=== PATIENT | female | born 1960 | race Two or more races ===

== ENCOUNTER 2022-10-19 00:44 | Inpatient (IN) | payer MEDICARE, OTHER ==
[2022-10-19] MEDS ORDERED: ALBUTEROL NEBULIZED 2.5 MG/3 ML INHALATION STA (00:46)
[2022-10-19] MEDS ORDERED: SODIUM CHLORIDE 0.9% 1,000 ML IV STA (00:46)
[2022-10-19] MEDS ORDERED: IPRATROPIUM 0.5 MG/2.5 ML NEBU INHALATION STA (00:46)
--- NOTE | 2022-10-19 00:47 | ED ---
SOB HPI - General Stated Complaint: Difficulty Breathing Time Seen by Provider: 10/19/22 00:46 Source: RN notes reviewed, old records reviewed Mode of arrival: EMS Limitations: altered mental status - History of Present Illness Initial Comments: This is a 62-year-old female DF for severe shortness of breath presenting a nonrebreather in significant distress severe shortness of breath lasting for a few hours no. Patient's brought in by EMS. No chest pain. No recent fever co ugh and congestion. MD Complaint: shortness of breath, cough, "asthma attack", anxiety -: hour(s) Severity: severe Severity scale (1-10): 10 Consistency: constant Improves With: bronchodilators Worsens With: exertion, movement Known History Of: COPD Context: recent URI, recent illness Associated Symptoms: cough, sputum production Treatments Prior to Arrival: none - Related Data Allergies Allergy/AdvReac Type Severity Reaction Status Date / Time codeine Allergy Unknown Verified 10/19/22 00:53 Review of Systems ROS Statement: Those systems with pertinent positive or pertinent negative responses have been documented in the HPI. ROS Other: All systems not noted in ROS Statement are negative. Course Vital Signs 10/19/22 10/19/22 10/19/22 00:45 00:55 00:57 Temperature 98.1 F Pulse Rate 109 H 90 Respiratory 26 H Rate Blood Pressure 184/128 O2 Sat by Pulse 100 Oximetry Fraction of 35 35 Inspired Oxygen (FIO2) 10/19/22 10/19/22 10/19/22 01:00 01:07 01:08 Temperature Pulse Rate 90 90 Respiratory 32 H Rate Blood Pressure O2 Sat by Pulse Oximetry Fraction of Inspired Oxygen (FIO2) 10/19/22 10/19/22 01:28 01:29 Temperature Pulse Rate 92 92 Respiratory Rate Blood Pressure O2 Sat by Pulse Oximetry Fraction of Inspired Oxygen (FIO2) - Reevaluation(s) Reevaluation #1: 10/19/22 01:36 Medical records reviewed Reevaluation #2: 10/19/22 01:37 Patient placed on BiPAP on arrival Patient is improving here in the ER Reevaluation #3: 10/19/22 01:37 Patient informed results and questions answered - Consultations Consultation #1: Spoke with admitting physicians who agree to admit this patient Medical Decision Making - Medical Decision Making 62 female for respiratory failure hypoxic secondary to COPD severely elevated blood pressure improving - Lab Data Result diagrams: 10/19/22 00:55 10/19/22 00:55 Lab Results 10/19/22 10/19/22 10/19/22 Range/Units 00:55 00:55 00:55 WBC 10.9 H (3.8-10.6) k/uL RBC 4.41 (3.80-5.40) m/uL Hgb 12.6 (11.4-16.0) gm/dL Hct 42.5 (34.0-46.0) % MCV 96.4 (80.0-100.0) fL MCH 28.6 (25.0-35.0) pg MCHC 29.7 L (31.0-37.0) g/dL RDW 13.1 (11.5-15.5) % Plt Count 243 (150-450) k/uL MPV 7.4 Neutrophils % 64 % Lymphocytes % 28 % Monocytes % 4 % Eosinophils % 1 % Basophils % 1 % Neutrophils # 7.0 (1.3-7.7) k/uL Lymphocytes # 3.1 (1.0-4.8) k/uL Monocytes # 0.4 (0-1.0) k/uL Eosinophils # 0.1 (0-0.7) k/uL Basophils # 0.1 (0-0.2) k/uL Hypochromasia Marked Sodium 140 (137-145) mmol/L Potassium 4.7 (3.5-5.1) mmol/L Chloride 101 (98-107) mmol/L Carbon Dioxide 29 (22-30) mmol/L Anion Gap 10 mmol/L BUN 26 H (7-17) mg/dL Creatinine 0.93 (0.52-1.04) mg/dL Est GFR (CKD-EPI)AfAm 76 (>60 ml/min/1.73 sqM) Est GFR (CKD-EPI)NonAf 66 (>60 ml/min/1.73 sqM) Glucose 169 H (74-99) mg/dL Plasma Lactic Acid Ramses 3.9 H* (0.7-2.0) mmol/L Calcium 8.5 (8.4-10.2) mg/dL Magnesium 2.1 (1.6-2.3) mg/dL Total Bilirubin 0.3 (0.2-1.3) mg/dL AST 43 H (14-36) U/L ALT 33 (4-34) U/L Alkaline Phosphatase 66 (38-126) U/L Total Protein 7.1 (6.3-8.2) g/dL Albumin 4.3 (3.5-5.0) g/dL - EKG Data -: EKG Interpreted by Me (EKG is sinus tachycardia 108 AK 1:30 QRS 82 QTC 371) - Radiology Data Radiology results: report reviewed (Chest x-rays negative for acute disease), image reviewed Critical Care Time Critical Care Time: Yes Total Critical Care Time: 31 Disposition Clinical Impression: Acute exacerbation of chronic obstructive pulmonary disease, Acute respiratory failure, Hypoxia, Hypertensive urgency Disposition: ADMITTED IP TO THIS HOSP Condition: Serious Is patient prescribed a controlled substance at d/c from ED?: No Referrals: None,Stated [Primary Care Provider] - 1-2 days Time of Disposition: 01:40
[2022-10-19] MEDS ORDERED: ENALAPRILAT 1.25 MG/ML 1 ML VIAL IVP STA (00:56)
[2022-10-19 01:04] LABS: Basophils # (A) 0.1 k/uL (0-0.2); Basophils % (A) 1 %; Eosinophils # (A) 0.1 k/uL (0-0.7); Eosinophils % (A) 1 %; HCT 42.5 % (34.0-46.0); HGB 12.6 gm/dL (11.4-16.0); Hypochromasia Marked; Lymphocytes # (A) 3.1 k/uL (1.0-4.8); Lymphocytes % (A) 28 %; MCH 28.6 pg (25.0-35.0); MCHC 29.7 g/dL (31.0-37.0); MCV 96.4 fL (80.0-100.0); Mean Platelet Volume 7.4; Monocytes # (A) 0.4 k/uL (0-1.0); Monocytes % (A) 4 %; Neutrophils % (A) 64 %; Platelet Count 243 k/uL (150-450); RBC 4.41 m/uL (3.80-5.40); RDW 13.1 % (11.5-15.5); WBC 10.9 k/uL (3.8-10.6)
--- NOTE | 2022-10-19 01:12 | XR ---
EXAMINATION TYPE: XR chest 1V portable DATE OF EXAM: 10/19/2022 COMPARISON: NONE HISTORY: Short of breath TECHNIQUE: Single view FINDINGS: Heart is normal. There is some mild blunting right custom phrenic angle. No heart failure s een. There is mild pulmonary hyperinflation. There are no hilar masses. IMPRESSION: Mild pleural reaction or fluid at the right lung base. There is probably COPD.
[2022-10-19 01:16] LABS: Partial Thromboplastin Time 22.5 sec (22.0-30.0); Prothrombin Time 10.9 sec (9.0-12.0)
[2022-10-19 01:30] LABS: Albumin 4.3 g/dL (3.5-5.0); Calcium 8.5 mg/dL (8.4-10.2); Magnesium 2.1 mg/dL (1.6-2.3); Total Bilirubin 0.3 mg/dL (0.2-1.3); Total Protein 7.1 g/dL (6.3-8.2)
[2022-10-19 01:33] LABS: Potassium 4.7 mmol/L (3.5-5.1)
[2022-10-19] MEDS ORDERED: ACETAMINOPHEN TAB 325 MG TAB PO PRN (01:34)
[2022-10-19] MEDS ORDERED: NALOXONE 0.4 MG/ML 1 ML VIAL IV PRN (01:34)
[2022-10-19] MEDS ORDERED: ONDANSETRON 4 MG/2 ML VIAL IVP PRN (01:34)
[2022-10-19] MEDS ORDERED: IPRATROPIUM-ALBUTEROL 3 ML NEB INHALATION STA (01:35)
[2022-10-19] MEDS: SODIUM CHLORIDE 0.9% 1,000 ML IV SCH ×3 (02:20→20:35)
[2022-10-19] MEDS: methylPREDNISolone SOD SUCCI 125 MG/2 ML VIAL IV SCH ×4 (06:14→23:45)
[2022-10-19] MEDS ORDERED: ALBUTEROL NEBULIZED 2.5 MG/3 ML INHALATION SCH (08:00)
[2022-10-19] MEDS ORDERED: IPRATROPIUM-ALBUTEROL 3 ML NEB INHALATION PRN (08:00)
--- NOTE | 2022-10-19 08:30 | P.HPIM ---
History of Present Illness This is a pleasant 62 years old -[place] female with no significant past medical history presents because of difficulty breathing, patient is currently on BiPAP feels very lethargic and she is poor historian. Information were obtained with the help of her brother at bedside. Patient was just moved from [place] the [place], as per brother she has history of COPD and chronic hypoxic respiratory failure on 4 L oxygen via nasal cannula. Presents because of worsening dyspnea patient awake and alert but very tired and barely can talk because of this BiPAP mask, her BiPAP setting of 10/23 with an FiO2 of 35%. Her brother states she was not coughing patient denies chest pain or abdominal pain. She denies diarrhea or vomiting. She denies dysuria or urgency. No headache or weakness or numbness or dizziness. Patient said that she smokes only 1 cigarette per day and she was counseled to quit and she agrees to the nicotine patch. She denies alcohol or illicit tracts. currently Vitas looks stable and patient is afebrile mild leukocytosis of 10.9, rest of cbc, inr, bmp is unremarkable. the consult came back to normal. liver enzymes not significantly elevated. on and is negative, probnp is 37. coronavirus not detected. Chest x-ray: Mild pleural reaction or fluid of the right lung base. There probably COPD EKG showing sinus tachycardia [address]-T changes. And emergency room patient received bronchodilator, normal saline and doesn't take. He was started on Solu-Medrol 60 mg Review of Systems Review of systems CONSTITUTIONAL: No fever, no malaise, no fatigue. HEENT: No recent visual problems or hearing problems. Denied any sore throat. CARDIOVASCULAR: No orthopnea, PND, no palpitations, no syncope. PULMONARY: No chest wall tenderness, no hemoptysis. GASTROINTESTINAL: No diarrhea, no nausea, no vomiting, no abdominal pain. Normoactive bowel sounds. NEUROLOGICAL: No headaches, no weakness, no numbness. HEMATOLOGICAL: Denies any bleeding or petechiae. GENITOURINARY: Denies any burning micturition, frequency, or urgency. MUSCULOSKELETAL/RHEUMATOLOGICAL: Denies any joint pain, swelling, or any muscle pain. ENDOCRINE: Denies any polyuria or polydipsia. Past Medical History Past Medical History: Unable to Obtain History of Any Multi-Drug Resistant Organisms: None Reported Past Surgical History: Unable to Obtain Past Psychological History: No Psychological Hx Reported Smoking Status: Unknown if ever smoked Past Alcohol Use History: Unable to Obtain Past Drug Use History: Unable to Obtain Medications and Allergies Allergies Allergy/AdvReac Type Severity Reaction Status Date / Time codeine Allergy Unknown Verified 10/19/22 00:53 Physical Exam Vitals: Vital Signs Temp Pulse Resp BP Pulse Ox FiO2 10/19/22 06:00 75 9 L 104/70 97 10/19/22 05:30 77 11 L 103/67 98 10/19/22 05:00 79 14 103/67 97 10/19/22 04:30 78 18 109/61 98 10/19/22 04:00 75 16 103/65 99 10/19/22 03:30 81 19 110/64 100 10/19/22 03:00 80 16 122/73 100 35 10/19/22 02:30 82 17 100/61 90 L 10/19/22 02:10 79 15 100/74 99 10/19/22 01:50 81 13 108/75 100 10/19/22 01:40 83 18 94/64 97 10/19/22 01:29 92 10/19/22 01:28 92 10/19/22 01:20 81 17 122/87 100 10/19/22 01:10 87 17 159/86 99 10/19/22 01:08 90 10/19/22 01:07 90 10/19/22 01:00 100 27 H 160/99 10/19/22 00:57 90 10/19/22 00:55 35 10/19/22 00:52 177/132 10/19/22 00:45 98.1 F 109 H 26 H 184/128 100 35 Intake and Output 10/18/22 10/18/22 10/19/22 14:59 22:59 06:59 Other: Weight 41.73 kg -GENERAL: The patient is alert and oriented x3, tire,d not in any acute distress. Well developed, well nourished. HEENT: Pupils are round and equally reacting to light. EOMI. No scleral icterus. No conjunctival pallor. Normocephalic, atraumatic. No pharyngeal erythema. No thyromegaly. CARDIOVASCULAR: S1 and S2 present. No murmurs, rubs, or gallops. -PULMONARY: Chest is clear to auscultation, no wheezing or crackles. Tachypneic on BiPAP ABDOMEN: Soft, nontender, nondistended, normoactive bowel sounds. No palpable organomegaly. MUSCULOSKELETAL: No joint swelling or deformity. EXTREMITIES: No cyanosis, clubbing, or pedal edema. NEUROLOGICAL: Gross neurological examination did not reveal any focal deficits. SKIN: No rashes. no petechiae. Results CBC & Chem 7: 10/19/22 00:55 10/19/22 00:55 Labs: Abnormal Lab Results - Last 24 Hours (Table) 10/19/22 10/19/22 10/19/22 Range/Units 00:55 00:55 00:55 WBC 10.9 H (3.8-10.6) k/uL MCHC 29.7 L (31.0-37.0) g/dL BUN 26 H (7-17) mg/dL Glucose 169 H (74-99) mg/dL Plasma Lactic Acid Ramses 3.9 H* (0.7-2.0) mmol/L AST 43 H (14-36) U/L Assessment and Plan Assessment: acute COPD exacerbation nicotine dependence elevated lactic acid, improved back to normal high Blood pressure on admission, improved Plan: Continue with Solu-Medrol Continue with bronchodilator Check for influenza Pulmonary consult Labs and medication were reviewed.. Continue same treatment. Continue with symptomatic treatment. Resume home medication. Monitor labs and vitals. DVT and GI prophylaxis. Further recommendations as per clinical course of the patient DVT prophylaxis: Subcutaneous heparin GI Prophylaxis: Pepcid PT/OT: Pending Prognosis is guarded
[2022-10-19] MEDS: NICOTINE 14MG/24HR PATCH TRANSDERM SCH (09:20)
[2022-10-19] MEDS: HEPARIN SODIUM,PORCINE/PF 5,000 UNIT/0.5 ML SYRINGE SQ SCH ×2 (09:20→20:35)
[2022-10-19] MEDS: FAMOTIDINE 20 MG/2 ML VIAL IV SCH (09:20)
--- NOTE | 2022-10-19 11:02 | P.CNPUL ---
History of Present Illness Consult date: 10/19/22 Requesting physician: Pacheco Hodge Reason for consult: dyspnea, cough, COPD, hypoxemia Chief complaint: Shortness of breath. History of present illness: Pulmonary consult dated 10/19/2022. 62-year-old female seen in the emergency room, with complaints of difficulty breathing and shortness of breath. The patient apparently has a family doctor in [place]. She does not have any doctors in this area. She was in quite a bit of distress, and EMS brought the patient to the emergency room to be evaluated. She was seen there, and placed on BiPAP. Her settings included an IPAP of 12, EPAP of 6, and 35%. She doesn't use home oxygen 24/7. She's not on any IV fluids. She continues to smoke cigarettes. White count 10.9, with a normal hemoglobin, hematocrit, and platelet count. Sodium 140, potassium 4.7, chlorides 101, CO2 29, anion gap 10, BUN 26, and creatinine 0.93. Initial lactic acid 3.9. Reflexes 0.9. The rest of her labs look okay. Chest x-ray shows some mild pleural reaction at the right lung base, and changes of COPD. Review of Systems REVIEW OF SYSTEMS: CONSTITUTIONAL: [Negative.] NEUROLOGIC: [ Negative.] HEENT: [ Negative.] CARDIAC: [Negative.] PULMONARY: Shortness of breath and cough. GI: [Negative.] : [Negative.] RHEUMATOLOGIC: [ Negative.] IMMUNOLOGIC: [ Negative.] ENDOCRINE: [Negative. ] DERMATOLOGIC: [Negative.] Past Medical History Past Medical History: Unable to Obtain History of Any Multi-Drug Resistant Organisms: None Reported Past Surgical History: Unable to Obtain Past Anesthesia/Blood Transfusion Reactions: No Reported Reaction Past Psychological History: No Psychological Hx Reported Smoking Status: Unknown if ever smoked Past Alcohol Use History: Unable to Obtain Past Drug Use History: Unable to Obtain Medications and Allergies Home Medications Medication Instructions Recorded Confirmed Type Albuterol Sulfate [Albuterol 1 - 2 puff INHALATION RT-Q4H PRN 10/19/22 10/19/22 History Sulfate Hfa] Budesonide/Formoterol Fumarate 2 puff INHALATION RT-BID 10/19/22 10/19/22 History [Symbicort 160-4.5 Mcg Inhaler] Cetirizine HCl [Zyrtec] 10 mg PO DAILY 10/19/22 10/19/22 History DULoxetine HCL [Cymbalta] 60 mg PO DAILY 10/19/22 10/19/22 History Doxycycline Hyclate 100 mg PO BID 10/19/22 10/19/22 History QUEtiapine [SEROquel] 400 mg PO HS 10/19/22 10/19/22 History buPROPion SR [Wellbutrin SR] 150 mg PO DAILY 10/19/22 10/19/22 History methylPREDNISolone [Medrol Dose See Taper PO DIRECTED 10/19/22 10/19/22 His tory Pack] Allergies Allergy/AdvReac Type Severity Reaction Status Date / Time codeine Allergy Unknown Verified 10/19/22 08:49 Physical Exam Osteopathic Statement: *. No significant issues noted on an osteopathic stru ctural exam other than those noted in the History and Physical/Consult. Vitals: Vital Signs Temp Pulse Pulse Resp BP BP Pulse Ox 10/19/22 08:00 90 18 134/84 10/19/22 07:42 82 10/19/22 07:22 76 10/19/22 06:00 75 9 L 104/70 97 10/19/22 05:30 77 11 L 103/67 98 10/19/22 05:00 79 14 103/67 97 10/19/22 04:30 78 18 109/61 98 10/19/22 04:00 75 16 103/65 99 10/19/22 03:30 81 19 110/64 100 10/19/22 03:00 80 16 122/73 100 10/19/22 02:30 82 17 100/61 90 L 10/19/22 02:10 79 15 100/74 99 10/19/22 01:50 81 13 108/75 100 10/19/22 01:40 83 18 94/64 97 10/19/22 01:29 92 10/19/22 01:28 92 10/19/22 01:20 81 17 122/87 100 10/19/22 01:10 87 17 159/86 99 10/19/22 01:08 90 10/19/22 01:07 90 10/19/22 01:00 100 27 H 160/99 10/19/22 00:57 90 10/19/22 00:55 10/19/22 00:52 177/132 10/19/22 00:45 98.1 F 109 H 26 H 184/128 100 FiO2 10/19/22 08:00 35 10/19/22 07:42 10/19/22 07:22 35 10/19/22 06:00 10/19/22 05:30 10/19/22 05:00 10/19/22 04:30 10/19/22 04:00 10/19/22 03:30 10/19/22 03:00 35 10/19/22 02:30 10/19/22 02:10 10/19/22 01:50 10/19/22 01:40 10/19/22 01:29 10/19/22 01:28 10/19/22 01:20 10/19/22 01:10 10/19/22 01:08 10/19/22 01:07 10/19/22 01:00 10/19/22 00:57 10/19/22 00:55 35 10/19/22 00:52 10/19/22 00:45 35 Intake and Output 10/18/22 10/19/22 10/19/22 22:59 06:59 14:59 Other: Weight 41.73 kg No acute distress, oriented 3. Currently on BiPAP. HEENT examination is grossly unremarkable. Neck supple. Full range of motion. No adenopathy thyromegaly or neck vein distention. Cardiovascular examination reveals regular rhythm rate. S1-S2 normal. No S3 or S4. No discernible murmur noted. Heart rate 90. Lungs reveal scattered bilateral rhonchi and wheezes. Breath sounds equal. No crackles. Saturations are excellent. Abdomen soft bowel sounds are heard. No masses or tenderness. Extremities are intact. No cyanosis clubbing or edema. Skin is without rash or lesion. Neurologic examination is brief but nonfocal. Results - Laboratory Findings CBC and BMP: 10/19/22 00:55 10/19/22 00:55 PT/INR, D-dimer PT 10.9 sec (9.0-12.0) 10/19/22 00:55 INR 1.0 (<1.2) 10/19/22 00:55 Abnormal lab findings: Abnormal Labs 10/19/22 10/19/22 10/19/22 00:55 00:55 00:55 WBC 10.9 H MCHC 29.7 L BUN 26 H Glucose 169 H Plasma Lactic Acid Ramses 3.9 H* AST 43 H - Diagnostic Findings Chest x-ray: image reviewed Assessment and Plan Assessment: Acute exacerbation of COPD with hypoxemic respiratory failure. History of ongoing tobacco use. Chronic hypoxemic respiratory failure. Plan: Plan dated 10/19/2022. The patient is seen in the emergency department, room 23. She appears to be relatively stable on BiPAP. I told her that she could come off the BiPAP and go on nasal prongs. Currently, she is receiving Pulmicort 1 mg, mixed with formoterol 20 g twice a day, albuterol sulfate and ipratropium bromide, as well as Solu-Medrol. I believe the patient will do well. Additional recommendations and suggestions are forthcoming. We will continue to follow along and make recommendations along the way. Time with Patient: Greater than 30
[2022-10-19] MEDS: IPRATROPIUM-ALBUTEROL 3 ML NEB INHALATION SCH ×3 (11:08→20:53)
[2022-10-19] MEDS: FORMOTEROL FUMARATE 20 MCG/2 ML NEBU INHALATION SCH (20:53)
[2022-10-19] MEDS: BUDESONIDE 1 MG/2 ML NEBU INHALATION SCH (20:53)
[2022-10-20] MEDS: methylPREDNISolone SOD SUCCI 125 MG/2 ML VIAL IV SCH ×3 (06:26→17:11)
[2022-10-20] MEDS ORDERED: DEXTROSE 50% SYRINGE 50 ML IVP PRN ×2 (06:27)
[2022-10-20] MEDS: SODIUM CHLORIDE 0.9% 1,000 ML IV SCH ×2 (07:41→07:49)
[2022-10-20] MEDS: INSULIN ASPART (NovoLOG) 100 UNIT/ML VIAL SQ SCH ×4 (07:42→20:27)
[2022-10-20] MEDS: FAMOTIDINE 20 MG/2 ML VIAL IV SCH (07:49)
[2022-10-20] MEDS: NICOTINE 14MG/24HR PATCH TRANSDERM SCH (07:49)
[2022-10-20] MEDS: HEPARIN SODIUM,PORCINE/PF 5,000 UNIT/0.5 ML SYRINGE SQ SCH ×2 (07:49→20:23)
[2022-10-20] MEDS: BUDESONIDE 1 MG/2 ML NEBU INHALATION SCH ×2 (08:40→20:18)
[2022-10-20] MEDS: IPRATROPIUM-ALBUTEROL 3 ML NEB INHALATION SCH ×4 (08:40→20:18)
[2022-10-20] MEDS: FORMOTEROL FUMARATE 20 MCG/2 ML NEBU INHALATION SCH ×2 (08:41→20:18)
[2022-10-20 09:17] LABS: ALT 27 U/L (4-34); AST 26 U/L (14-36); African American GFR (CKD) >90 (>60 ml/min/1.73 sqM); Albumin 3.8 g/dL (3.5-5.0); Alkaline Phosphatase 68 U/L (38-126); Anion Gap 6 mmol/L; Blood Urea Nitrogen 20 mg/dL (7-17); Calcium 8.5 mg/dL (8.4-10.2); Carbon Dioxide 26 mmol/L (22-30); Chloride 104 mmol/L (98-107); Glucose 143 mg/dL (74-99); Non-African American GFR(CKD) >90 (>60 ml/min/1.73 sqM); Potassium 4.5 mmol/L (3.5-5.1); Sodium 136 mmol/L (137-145); Total Bilirubin 0.3 mg/dL (0.2-1.3); Total Protein 6.5 g/dL (6.3-8.2)
[2022-10-20 09:41] LABS: Basophils % (A) 0 %; Eosinophils % (A) 0 %; HGB 12.1 gm/dL (11.4-16.0); Hypochromasia Marked; Lymphocytes # (A) 0.6 k/uL (1.0-4.8); Lymphocytes % (A) 3 %; MCH 28.5 pg (25.0-35.0); MCHC 30.3 g/dL (31.0-37.0); MCV 94.3 fL (80.0-100.0); Mean Platelet Volume 8.3; Monocytes # (A) 0.5 k/uL (0-1.0); Monocytes % (A) 2 %; Neutrophils % (A) 94 %; Platelet Count 216 k/uL (150-450); RBC 4.24 m/uL (3.80-5.40); RDW 13.1 % (11.5-15.5); WBC 19.2 k/uL (3.8-10.6)
--- NOTE | 2022-10-20 10:46 | P.PN ---
Subjective This is a pleasant 62 years old -[place] female with no significant past medical history presents because of difficulty breathing, patient is currently on BiPAP feels very lethargic and she is poor historian. Information were obtained with the help of her brother at bedside. Patient was just moved from [place] the [place], as per brother she has history of COPD and chronic hypoxic respiratory failure on 4 L oxygen via nasal cannula. Presents because of worsening dyspnea patient awake and alert but very tired and barely can talk because of this BiPAP mask, her BiPAP setting of 10/23 with an FiO2 of 35%. Her brother states she was not coughing patient denies chest pain or abdominal pain. She denies diarrhea or vomiting. She denies dysuria or urgency. No headache or weakness or numbness or dizziness. Patient said that she smokes only 1 cigarette per day and she was counseled to quit and she agrees to the nicotine patch. She denies alcohol or illicit tracts. currently Vitas looks stable and patient is afebrile mild leukocytosis of 10.9, rest of cbc, inr, bmp is unremarkable. the consult came back to normal. liver enzymes not significantly elevated. on and is negative, probnp is 37. coronavirus not detected. Chest x-ray: Mild pleural reaction or fluid of the right lung base. There probably COPD EKG showing sinus tachycardia [address]-T changes. And emergency room patient received bronchodilator, normal saline and doesn't take. He was started on Solu-Medrol 60 mg 10/20/2022 She was still complaining of from dyspnea/tachypnea, she still have limited air entry on both lung be. Her symptoms are present at rest. She remains on 4 L oxygen was saturating 93-94%. Of note she is at home also was on 4 L/m. Blood pressure is stable, creatinine is normal. She tolerates diet well She remains on Solu-Medrol and breathing treatments Objective - Vital Signs Vital signs: Vital Signs Temp 98.3 F 10/20/22 07:45 Pulse 88 10/20/22 09:08 Resp 22 10/20/22 09:08 BP 134/70 10/20/22 07:45 Pulse Ox 97 10/20/22 08:41 FiO2 35 10/20/22 08:41 Intake & Output 10/19/22 10/20/22 10/20/22 18:59 06:59 18:59 Intake Total 1700 118 Balance 1700 118 Weight 41.73 kg Intake: Intake, IV Titration 900 Amount Sodium Chloride 0.9% 1, 900 000 ml @ 130 mls/hr IV . Q7H42M [facility] Rx#:[id number] Oral 800 118 Other: Voiding Method Bedside Commode Bedside Commode # Voids 1 # Bowel Movements 1 - Exam GENERAL: The patient is alert and oriented x3, not in any acute distress. Well developed, well nourished. HEENT: Pupils are round and equally reacting to light. EOMI. No scleral icterus. No conjunctival pallor. Normocephalic, atraumatic. No pharyngeal erythema. No thyromegaly. CARDIOVASCULAR: S1 and S2 present. No murmurs, rubs, or gallops. -PULMONARY: Chest is clear to auscultation, scattered wheezing and decreased air entry in both lung be ABDOMEN: Soft, nontender, nondistended, normoactive bowel sounds. No palpable organomegaly. MUSCULOSKELETAL: No joint swelling or deformity. EXTREMITIES: No cyanosis, clubbing, or pedal edema. NEUROLOGICAL: Gross neurological examination did not reveal any focal deficits. SKIN: No rashes. no petechiae. - Labs CBC & Chem 7: 10/20/22 08:40 10/20/22 08:40 Labs: Abnormal Lab Results - Last 24 Hours (Table) 10/20/22 10/20/22 Range/Units 08:40 08:40 WBC 19.2 H (3.8-10.6) k/uL MCHC 30.3 L (31.0-37.0) g/dL Neutrophils # 18.0 H (1.3-7.7) k/uL Lymphocytes # 0.6 L (1.0-4.8) k/uL Sodium 136 L (137-145) mmol/L BUN 20 H (7-17) mg/dL Glucose 143 H (74-99) mg/dL Assessment and Plan Assessment: acute COPD exacerbation nicotine dependence elevated lactic acid, improved back to normal high Blood pressure on admission, improved Plan: Continue with Solu-Medrol Continue with bronchodilator Pulmonary consult Labs and medication were reviewed.. Continue same treatment. Continue with symptomatic treatment. Resume home medication. Monitor labs and vitals. DVT and GI prophylaxis. Further recommendations as per clinical course of the patient DVT prophylaxis: Subcutaneous heparin GI Prophylaxis: Pepcid PT/OT: Pending Prognosis is guarded
[2022-10-20 11:55] LABS: Glucose,Whole Blood 114 mg/dL (70-110)
[2022-10-20 13:17] LABS: T4, Free (Free Thyroxine) 1.37 ng/dL (0.78-2.19)
--- NOTE | 2022-10-20 14:56 | P.PN ---
Subjective Progress Note Date: 10/20/22 Principal diagnosis: Respiratory failure. Pulmonary consult dated 10/19/2022. 62-year-old female seen in the emergency room, with complaints of difficulty breathing and shortness of breath. The patient apparently has a family doctor in [place]. She does not have any doctors in this area. She was in quite a bit of distress, and EMS brought the patient to the emergency room to be evaluated. She was seen there, and placed on BiPAP. Her settings included an IPAP of 12, EPAP of 6, and 35%. She doesn't use home oxygen 07/06. She's not on any IV fluids. She continues to smoke cigarettes. White count 10.9, with a normal hemoglobin, hematocrit, and platelet count. Sodium 140, potassium 4.7, chlorides 101, CO2 29, anion gap 10, BUN 26, and creatinine 0.93. Initial lac tic acid 3.9. Reflexes 0.9. The rest of her labs look okay. Chest x-ray shows some mild pleural reaction at the right lung base, and changes of COPD. Progress note dated 10/20/2022. This is a 62-year-old black female seen yesterday in the emergency room. When we saw her yesterday, she was being admitted for a COPD exacerbation. She was on BiPAP, with settings of 12/6 and 35%. Currently, she is on 4 L of oxygen. She has not been wearing the BiPAP. She is feeling much better. She was up here visiting some friends. Most of her health care takes place in [place]. She does continue to smoke cigarettes. White count 19.2, hemoglobin 12.1, hematocrit 40, and platelet count 216,000. Sodium 136, potassium 4.5, chlorides 104, CO2 26, BUN 20, with a creatinine 0.58. TSH is 0.236. Free T4 is 1.37. Testing for coronavirus, as well as influenza A and B, is negative. Objective - Vital Signs Vital signs: Vital Signs Temp 98.3 F 10/20/22 07:45 Pulse 93 10/20/22 13:02 Resp 18 10/20/22 12:06 BP 133/71 10/20/22 11:11 Pulse Ox 98 10/20/22 11:11 FiO2 35 10/20/22 08:41 Intake & Output 10/19/22 10/20/22 10/20/22 18:59 06:59 18:59 Intake Total 1700 118 Balance 1700 118 Weight 41.73 kg Intake: Intake, IV Titration 900 Amount Sodium Chloride 0.9% 1, 900 000 ml @ 130 mls/hr IV . Q7H42M [facility] Rx#:[id number] Oral 800 118 Other: Voiding Method Bedside Commode Bedside Commode # Voids 1 1 # Bowel Movements 1 - Exam No acute distress, oriented 3. Currently on 4 liters by nasal cannula. HEENT examination is grossly unremarkable. Neck supple. Full range of motion. No adenopathy thyromegaly or neck vein distention. Cardiovascular examination reveals regular rhythm rate. S1-S2 normal. No S3 or S4. No discernible murmur noted. Heart rate 93. Lungs reveal scattered bilateral rhonchi and wheezes. Breath sounds equal. No crackles. Saturations are excellent. Abdomen soft bowel sounds are heard. No masses or tenderness. Extremities are intact. No cyanosis clubbing or edema. Skin is without rash or lesion. Neurologic examination is brief but nonfocal. - Labs CBC & Chem 7: 10/20/22 08:40 10/20/22 08:40 Labs: Abnormal Lab Results - Last 24 Hours (Table) 10/20/22 10/20/22 10/20/22 Range/Units 08:40 08:40 08:40 WBC 19.2 H (3.8-10.6) k/uL MCHC 30.3 L (31.0-37.0) g/dL Neutrophils # 18.0 H (1.3-7.7) k/uL Lymphocytes # 0.6 L (1.0-4.8) k/uL Sodium 136 L (137-145) mmol/L BUN 20 H (7-17) mg/dL Glucose 143 H (74-99) mg/dL POC Glucose (mg/dL) (70-110) mg/dL TSH 0.236 L (0.465-4.680) mIU/L 10/20/22 Range/Units 11:48 WBC (3.8-10.6) k/uL MCHC (31.0-37.0) g/dL Neutrophils # (1.3-7.7) k/uL Lymphocytes # (1.0-4.8) k/uL Sodium (137-145) mmol/L BUN (7-17) mg/dL Glucose (74-99) mg/dL POC Glucose (mg/dL) 114 H (70-110) mg/dL TSH (0.465-4.680) mIU/L Assessment and Plan Assessment: Acute exacerbation of COPD with hypoxemic respiratory failure. History of ongoing tobacco use. Chronic hypoxemic respiratory failure. Plan: Plan dated 10/19/2022. The patient is seen in the emergency department, room 23. She appears to be relatively stable on BiPAP. I told her that she could come off the BiPAP and go on nasal prongs. Currently, she is receiving Pulmicort 1 mg, mixed with formoterol 20 g twice a day, albuterol sulfate and ipratropium bromide, as well as Solu-Medrol. I believe the patient will do well. Additional recommendations and suggestions are forthcoming. We will continue to follow along and make recommendations along the way. Plan dated 10/20/2022. The patient's currently on 4 L of oxygen. She's receiving albuterol sulfate and ipratropium bromide, and Solu-Medrol. In addition, she is on Pulmicort and formoterol updrafts. She is on a nicotine patch. She's feeling much better. She has not used the BiPAP device since yesterday. We will continue to follow make recommendations along the way. Prognosis is certainly guarded. Time with Patient: Less than 30
[2022-10-20 17:06] LABS: Glucose,Whole Blood 150 mg/dL (70-110)
[2022-10-20 20:28] LABS: Glucose,Whole Blood 138 mg/dL (70-110)
[2022-10-21] MEDS: methylPREDNISolone SOD SUCCI 125 MG/2 ML VIAL IV SCH ×3 (00:11→12:33)
[2022-10-21] MEDS: MORPHINE SULFATE 4 MG/ML SYRINGE IV PRN ×3 (03:20→12:31)
[2022-10-21 06:03] LABS: Glucose,Whole Blood 110 mg/dL (70-110)
[2022-10-21] MEDS: INSULIN ASPART (NovoLOG) 100 UNIT/ML VIAL SQ SCH ×2 (06:08→12:09)
[2022-10-21] MEDS: FORMOTEROL FUMARATE 20 MCG/2 ML NEBU INHALATION SCH (08:16)
[2022-10-21] MEDS: IPRATROPIUM-ALBUTEROL 3 ML NEB INHALATION SCH ×2 (08:16→12:59)
[2022-10-21] MEDS: BUDESONIDE 1 MG/2 ML NEBU INHALATION SCH (08:16)
[2022-10-21] MEDS: HEPARIN SODIUM,PORCINE/PF 5,000 UNIT/0.5 ML SYRINGE SQ SCH (08:20)
[2022-10-21] MEDS: FAMOTIDINE 20 MG/2 ML VIAL IV SCH (08:20)
[2022-10-21] MEDS: NICOTINE 14MG/24HR PATCH TRANSDERM SCH (08:20)
[2022-10-21 09:43] VITALS: TEMP 98.2
[2022-10-21 10:33] LABS: HCT 37.8 % (34.0-46.0); HGB 11.9 gm/dL (11.4-16.0); Hypochromasia Moderate; MCHC 31.5 g/dL (31.0-37.0); MCV 92.2 fL (80.0-100.0); Mean Platelet Volume 7.3; Platelet Count 261 k/uL (150-450); WBC 18.6 k/uL (3.8-10.6)
[2022-10-21 11:39] LABS: Glucose,Whole Blood 523 mg/dL (70-110)
[2022-10-21 11:41] LABS: Glucose,Whole Blood 172 mg/dL (70-110)
[2022-10-21 14:09] VITALS: BMI 18.1
[2022-10-21] MEDS ORDERED: HYDROcodone/APAP 5-325MG 1 EACH TAB PO PRN (14:43)
[2022-10-21] MEDS ORDERED: amLODIPine 2.5 MG TAB PO SCH (15:00)
[2022-10-21 15:03] VITALS: BP 157/66; PULSE 92; RESP 20
--- NOTE | 2022-10-21 22:27 | PN ---
PROGRESS NOTE DATE OF SERVICE: 10/21/2022 This is a pulmonary/critical care progress note. SUBJECTIVE: This is a 62-year-old black female seen in the emergency room 2 days ago. She came in with respiratory failure secondary to COPD exacerbation. She was initially on BiPAP. Currently, the patient is doing well. She is on 4 L. The patient would like to be discharged home. From my perspective, she could be. Will leave that up to the primary service. She is feeling much better. OBJECTIVE: VITAL SIGNS: Current vital signs are reviewed. She is afebrile. Heart rate 92, respiratory rate 20, blood pressure 157/66, mean 96, and saturations are 99% on 4 L. Appears in no acute distress. HEENT: Grossly unremarkable. NECK: Supple. CARDIOVASCULAR: Reveals regular rhythm rate. S1, S2 normal. No murmur. LUNGS: Reveal diminished breath sounds. Scattered rhonchi. No wheezes or crackles. Breath sounds equal. Breath sounds are much improved. ABDOMEN: Soft, bowel sounds are heard. EXTREMITIES: Intact. No cyanosis, clubbing, or edema. SKIN: Without rash. NEUROLOGIC: Examination is nonfocal. LABS: Include a white count 18.6, hemoglobin 11.9, hematocrit 37.8, and platelet count 261,000. Chest x-ray was reviewed on October 19. MEDICATIONS: Reviewed. ASSESSMENT: 1. Acute exacerbation of chronic obstructive pulmonary disease with hypoxemic respiratory failure, much improved. 2. History of ongoing tobacco use. 3. Chronic hypoxemic respiratory failure. PLAN: The patient has dramatically improved. She would like to be discharged home. Will leave that up to the primary service. All of her doctors are down in [place]. She is up in this area visiting. She will follow up with her own family doctor. MMODL / IJN: [id number] /
--- NOTE | 2022-10-21 22:37 | P.DS ---
Providers Date of admission: 10/19/22 01:34 Attending physician: Pacheco Hodge Consults: 10/19/22 06:50 Consult Physician Urgent Consulting Provider: Bryon Mathews Reason/Comments: copd Do you want consulting provider notified?: Yes Primary care physician: Physician Nonstaff Hospital Course: Diagnoses: acute COPD exacerbation nicotine dependence elevated lactic acid, improved back to normal high Blood pressure on admission, most likely patient has hypertension which is exacerbated by steroids Hospital course: This is a pleasant 62 years old -[place] female with no significant past medical history presents because of difficulty breathing, patient found to have acute COPD exacerbation, she was evaluated by rn baby and she was treated with IV Solu-Medrol, with oxygen therapy in the beginning she needs BiPAP however, prior to discharge patient is back to her baseline of 4 L/m as patient has chronic hypoxic respiratory failure and she confirmed to me she is on 4 L of oxygen at home that she has a supply available with her. Today patient shows significant interval improvement and she is back to her baseline, she denies any other symptoms to acute. The morning patient was complaining of from a headache however when I saw the patient later on she told me that her headache is completely gone as 0/10 after she received morphine. After ROUNDS and received a call from the bed side nurse that patient has been cleared by pulmonary team. And that her blood pressure was slightly elevated and she is complaining of from headache, Norvasc 2.5 mg is ordered for her and she agreed to it. Her blood pressure improved 162/82 down to 157/66, her headache resolved as per bedside nurse, and patient informed the nurse that if she is not going to be discharged now she's going to leave [facility]. As such patient was medically stable for discharge since also she's been cleared by rn baby and she is back to her baseline. Patient denies any other new symptoms, no dizziness or weakness or numbness, no GI or urinary symptoms, no fever. Patient was extremely keen to be discharged today. Problems and management plan were discussed with the patient and he verbalized understanding and acceptance Patient was found stable and can be discharged home in guarded prognosis however he needs follow-up as an outpatient. Patient was instructed to follow up with PCP within one week and patient agrees Patient was instructed to follow up with her rn baby Dr. Pal and wants to weeks and she agrees Also patient has some concerns about her thyroid, no apparent goiter, T4 is n ormal. However patient was referred to tools and parts attendant Dr. Jordan or Dr. Yoder in one week and she agrees with make an appointment for herself. Physical exam Gen: patient is a AAOx3, no distress CVS: S1-S2, RRR, no murmur Lungs: B/L CTA, no wheezing Abdomen: soft, no distention, no tenderness, positive bowel sounds Extremity: no leg edema or induration Time spent more than 35 minutes Patient Condition at Discharge: Serious Plan - Discharge Summary Discharge Rx Participant: Yes New Discharge Prescriptions: New predniSONE 10 mg PO DIRECTED #30 tab Acetaminophen Tab [Tylenol] 650 mg PO Q6HR PRN tab PRN Reason: Mild Pain Or Fever > 100.5 Famotidine [Pepcid] 20 mg PO BID #60 tablet amLODIPine [Norvasc] 2.5 mg PO DAILY #30 tab Continue QUEtiapine [SEROquel] 400 mg PO HS Cetirizine HCl [Zyrtec] 10 mg PO DAILY Budesonide/Formoterol Fumarate [Symbicort 160-4.5 Mcg Inhaler] 2 puff INHALATION RT-BID Albuterol Sulfate [Albuterol Sulfate Hfa] 1 - 2 puff INHALATION RT-Q4H PRN PRN Reason: Shortness Of Breath buPROPion SR [Wellbutrin SR] 150 mg PO DAILY DULoxetine HCL [Cymbalta] 60 mg PO DAILY Discontinued methylPREDNISolone [Medrol Dose Pack] See Taper PO DIRECTED No Action Doxycycline Hyclate 100 mg PO BID Discharge Medication List Albuterol Sulfate [Albuterol Sulfate Hfa] 1 - 2 puff INHALATION RT-Q4H PRN 10/19/22 [History] Budesonide/Formoterol Fumarate [Symbicort 160-4.5 Mcg Inhaler] 2 puff INHALATION RT-BID 10/19/22 [History] Cetirizine HCl [Zyrtec] 10 mg PO DAILY 10/19/22 [History] DULoxetine HCL [Cymbalta] 60 mg PO DAILY 10/19/22 [History] Doxycycline Hyclate 100 mg PO BID 10/19/22 [History] QUEtiapine [SEROquel] 400 mg PO HS 10/19/22 [History] buPROPion SR [Wellbutrin SR] 150 mg PO DAILY 10/19/22 [History] Acetaminophen Tab [Tylenol] 650 mg PO Q6HR PRN tab 10/21/22 [Rx] Famotidine [Pepcid] 20 mg PO BID #60 tablet 10/21/22 [Rx] amLODIPine [Norvasc] 2.5 mg PO DAILY #30 tab 10/21/22 [Rx] predniSONE 10 mg PO DIRECTED #30 tab 10/21/22 [Rx] Follow up Appointment(s)/Referral(s): Wili Wagoner MD [REFERRING] - 1 Week (Please call to schedule follow up [facility]--endocrine.) Bryon Mathews DO [Doctor of Osteopathic Medicine] - 1 Week (Please call to schedule follow up [facility].) None,Stated [REFERRING] - 1-2 days (Please schedule follow up with your PCP [facility].) Adri Jordan MD [STAFF PHYSICIAN] - 1 Week (Please call to schedule follow up [facility]--endocrine.) Patient Instructions/Handouts: COPD (Chronic Obstructive Pulmonary Disease) (DC) Activity/Diet/Wound Care/Special Instructions: heart healthy diet activity is restricted till you see your doctor We recommend to follow-up with your primary care doctor in 1 week after discharge, please call to make an appointment. If you don't have a primary care doctor then contact your health insurance provider to find nearby primary care doctor and: Make an appointment in 1 week Discharge Disposition: HOME WITH HOME HEALTH SERVICES
[2022-10-22] MEDS ORDERED: predniSONE 20 MG TAB PO SCH (09:00)
== END 2022-10-21 15:51 | disposition home health service (06) | DRG 190 ==
LOC: EC 00:44 → 3SCARD 01:34
PROVIDERS: ADMIT Hospitalist; ATTEND Hospitalist
PROC: 5A09357 Assistance with Respiratory Ventilation, Less than 24 Consecutive Hours, Continuous Positive Airway Pressure (ICD-10-PCS; principal; 2022-10-19)
PROC: 3E0F7SF Introduction of Other Gas into Respiratory Tract, Via Natural or Artificial Opening (ICD-10-PCS; 2022-10-19)
DX: J44.1 Chronic obstructive pulmonary disease with (acute) exacerbation (principal); J96.21 Acute and chronic respiratory failure with hypoxia; Z20.822 Contact with and (suspected) exposure to COVID-19; I16.0 Hypertensive urgency; F41.9 Anxiety disorder, unspecified; I10 Essential (primary) hypertension; T38.0X5A Adverse effect of glucocorticoids and synthetic analogues, initial encounter; F17.210 Nicotine dependence, cigarettes, uncomplicated; Z71.6 Tobacco abuse counseling; Z99.81 Dependence on supplemental oxygen; Z88.5 Allergy status to narcotic agent; Z79.890 Hormone replacement therapy; Z79.51 Long term (current) use of inhaled steroids; Z79.899 Other long term (current) drug therapy; X58.XXXA Exposure to other specified factors, initial encounter
CPT/HCPCS: 36415; 71045; 80053; 83036; 83605; 83735; 83880; 84145; 84439; 84443; 84484; 85025; 85027; 85610; 85730; 87502; 87635; 93005; 94640; 94660; 94760; 96361; 96372; 96374; 96375; 96376; 99291